=== PATIENT | male | born 1955 | race Caucasian/White ===

== ENCOUNTER 2018-05-25 09:31 | Day surgery (SDC) | payer OTHER ==
[~2018-05-25] VITALS: Ht 185.4 cm; Wt 91.7 kg
[~2018-05-25 09:31] MED LIST: BUPIVACAINE/PF-EPI 0.5% 1:200K ONE; None per pt
[2018-05-25] MEDS ORDERED: LACTATED RINGERS 1,000 ML IV SCH (09:46)
[2018-05-25 10:24] VITALS: BP 146/91
[2018-05-25] MEDS ORDERED: LIDOCAINE-MPF 2% ,5ML ONE (11:11)
[2018-05-25] MEDS ORDERED: SUCCINYLCHOLINE 20 MG/ML, 10ML ONE (11:11)
[2018-05-25] MEDS ORDERED: ONDANSETRON 2MG/ML, 2ML ONE ×5 (11:12)
[2018-05-25] MEDS ORDERED: METOCLOPRAMIDE 5 MG/ML, 2ML ONE (11:12)
[2018-05-25] MEDS ORDERED: PROPOFOL 10 MG/ML, 20ML ONE (11:12)
[2018-05-25] MEDS ORDERED: DEXAMETHASONE 4 MG/ML, 1ML ONE ×3 (11:13)
[2018-05-25] MEDS ORDERED: FENTANYL PF 100 MCG/2ML ONE ×2 (11:18→14:39)
[2018-05-25] MEDS ORDERED: MIDAZOLAM 1 MG/ML, 2ML ONE (11:18)
[2018-05-25] MEDS ORDERED: OXYcodone 5 MG/5 ML ORAL.SOL UDC ONE (14:26)
[2018-05-25] MEDS ORDERED: OXYcodone 5 MG/5 ML ORAL.SOL UDC PO PRN (14:30)
[2018-05-25] MEDS ORDERED: LABETALOL 5MG/ML, 20ML IV PRN (14:30)
[2018-05-25] MEDS ORDERED: MEPERIDINE/PF 25MG/0.5ML IVPush PRN (14:30)
[2018-05-25] MEDS ORDERED: MIDAZOLAM 1 MG/ML, 2ML IV PRN (14:30)
[2018-05-25] MEDS ORDERED: ONDANSETRON 2MG/ML, 2ML IVPush PRN (14:30)
[2018-05-25] MEDS ORDERED: HYDROmorphone 1 MG/ML, 1ML IV PRN (14:30)
[2018-05-25] MEDS: FENTANYL PF 100 MCG/2ML IV PRN ×2 (14:40→15:05)
[2018-05-25] MEDS ORDERED: PROMETHAZINE 12.5 MG SUPP PR PRN (17:30)
[2018-05-26] MEDS ORDERED: ACET325T14 PO (11:42)
[2018-05-26] MEDS ORDERED: AMOX-291 PO (11:42)
[2018-05-26] MEDS ORDERED: DOXY100T9 PO (11:42)
== END 2018-05-25 19:05 | disposition home or self-care (01) ==
LOC: OUT 09:31
PROVIDERS: ATTEND Surgery
DX: E04.1 Nontoxic single thyroid nodule (principal); Z85.828 Personal history of other malignant neoplasm of skin; Z98.890 Other specified postprocedural states; Z72.89 Other problems related to lifestyle
CPT/HCPCS: 60220; 88307; C1760; J0330; J1100; J1170; J2250; J2405; J2704; J2765; J3010; J3490

== ENCOUNTER 2018-05-25 20:24 | Observation (INO) | payer OTHER ==
[~2018-05-25] VITALS: Ht 185.4 cm; Wt 91.0 kg
[~2018-05-25 20:24] MED LIST changes: -BUPIVACAINE/PF-EPI 0.5% 1:200K ONE
[2018-05-25] MEDS ORDERED: SODIUM CHLORIDE FLUSH 10ML SYR IVF ONE (21:30)
[2018-05-25] MEDS ORDERED: SODIUM CHLORIDE 0.9% 1,000ML IVBOLUS ONE (21:30)
[2018-05-25 21:43] LABS: MEAN CORPUSCULAR HEMOGLOBIN 31.3 pg (27.5-34.5); MEAN CORPUSCULAR HGB CONC 34.1 g/dL (33.2-36.2); MEAN CORPUSCULAR VOLUME 91.7 fL (81-97); MEAN PLATELET VOLUME 8.9 fL (7.4-10.4); PLATELET COUNT 206 x10^3/uL (130-400); RED BLOOD COUNT 5.38 x10^6/uL (4.38-5.82); RED CELL DISTRIBUTION WIDTH 12.7 % (9.4-14.8)
[2018-05-25 21:50] LABS: ANION GAP 7 mmol/L (5-15); CALCIUM 8.9 mg/dL (8.5-10.1); CHLORIDE 105 mmol/L (98-107)
[2018-05-25 21:55] LABS: ALANINE AMINOTRANSFERASE 27 U/L (12-78); ALKALINE PHOSPHATASE 62 U/L (45-117); BILIRUBIN,TOTAL 0.5 mg/dL (0.2-1.0); CREATININE 1.07 mg/dL (0.7-1.3); TOTAL PROTEIN 7.4 g/dL (6.4-8.2); TROPONIN I < 0.015 ng/mL (0.000-0.045)
[2018-05-25] MEDS ORDERED: METOCLOPRAMIDE 5 MG/ML, 2ML IV ONE (22:00)
[2018-05-25] MEDS ORDERED: METOCLOPRAMIDE 5 MG/ML, 2ML ONE (22:05)
[2018-05-25 22:20] LABS: BASOPHILS # (AUTO) 0.01 x10^3/uL (0-0.1); BASOPHILS % (AUTO) 0 % (0-1); EOSINOPHILS % (AUTO) 0 % (1-7); LYMPHOCYTES # (AUTO) 0.41 x10^3/uL (1-3.4); LYMPHOCYTES % (AUTO) 3 % (22-44); MD SCAN; MONOCYTES # (AUTO) 0.24 x10^3/uL (0.2-0.8); MONOCYTES % (AUTO) 2 % (2-9); NEUTROPHILS % (AUTO) 96 % (42-75)
[2018-05-25] MEDS ORDERED: CEFTRIAXONE 1,000 MG in SODIUM CHLORIDE 0.9% 50 ML IVPB ONE (22:30)
[2018-05-25] MEDS ORDERED: AZITHROMYCIN 500 MG in SODIUM CHLORIDE 0.9% 250 ML IVPB ONE (22:30)
[2018-05-25] MEDS ORDERED: CEFTRIAXONE PMX 1GM/50ML 50 ML ONE (22:39)
[2018-05-25] MEDS ORDERED: SODIUM CHLORIDE 0.9% 1,000 ML IV SCH (23:34)
[2018-05-26] MEDS ORDERED: ACETAMINOPHEN 325 MG TABLET PO PRN
[2018-05-26] MEDS ORDERED: ONDANSETRON 2MG/ML, 2ML IVPush PRN
[2018-05-26] MEDS ORDERED: PROMETHAZINE 25 MG/ML, 1ML IM PRN
[2018-05-26] MEDS ORDERED: HYDROcodone/APAP 5/325 TABLET PO PRN
[2018-05-26] MEDS ORDERED: POLYETHYLENE GLYCOL 17 GM PACKET PO PRN
[2018-05-26 02:55] VITALS: BP 147/80
[2018-05-26] MEDS: ONDANSETRON ODT 4 MG PO PRN ×2 (07:17→12:34)
[2018-05-26 07:58] VITALS: BP 136/77
[2018-05-26 08:50] LABS: BASOPHILS # (AUTO) 0.02 x10^3/uL (0-0.1); BASOPHILS % (AUTO) 0 % (0-1); EOSINOPHILS % (AUTO) 0 % (1-7); LYMPHOCYTES # (AUTO) 1.08 x10^3/uL (1-3.4); LYMPHOCYTES % (AUTO) 9 % (22-44); MD NO; MEAN CORPUSCULAR HEMOGLOBIN 31.3 pg (27.5-34.5); MEAN CORPUSCULAR HGB CONC 34.3 g/dL (33.2-36.2); MEAN CORPUSCULAR VOLUME 91.2 fL (81-97); MEAN PLATELET VOLUME 9.2 fL (7.4-10.4); MONOCYTES # (AUTO) 0.54 x10^3/uL (0.2-0.8); MONOCYTES % (AUTO) 5 % (2-9); NEUTROPHILS # (AUTO) 10.48 x10^3/uL (1.8-6.8); NEUTROPHILS % (AUTO) 86 % (42-75); PLATELET COUNT 216 x10^3/uL (130-400); RED BLOOD COUNT 4.87 x10^6/uL (4.38-5.82); RED CELL DISTRIBUTION WIDTH 12.9 % (9.4-14.8)
[2018-05-26] MEDS ORDERED: AMOX-291 PO (11:42)
[2018-05-26] MEDS ORDERED: DOXY100T9 PO (11:42)
[2018-05-26] MEDS ORDERED: ACET325T14 PO (11:42)
[2018-05-26 12:23] VITALS: BP 150/87
[2018-05-26] MEDS ORDERED: SODIUM CHLORIDE 0.9% 1,000 ML IV SCH (23:34)
== END 2018-05-26 14:00 | disposition home or self-care (01) ==
LOC: ED 22:53 → 4NOR 22:55 → INTOOBSV 22:55 → ED 23:20 → SUATTDRO 23:34 → ED 23:47 → 4NOR 23:47
PROVIDERS: ADMIT Hospitalist; ATTEND Hospitalist
DX: E04.1 Nontoxic single thyroid nodule (principal); G47.30 Sleep apnea, unspecified; F10.10 Alcohol abuse, uncomplicated
CPT/HCPCS: 36415; 71045; 80053; 83880; 84484; 85025; 87040; 93005; 96361; 96365; 96367; 96375; 99285; G0378; J0456; J0696; J2765; J7030; J7050; Q0162

== ENCOUNTER → 2018-06-09 | Outpatient (CLI) | payer OTHER ==
[~2018-06-09] MED LIST changes: +ACET325T14 PO; +AMOX-291 PO; +DOXY100T9 PO; +IBUP200C8 PO
== END | disposition home or self-care (01) ==
LOC: STAR 15:11
PROVIDERS: ATTEND Surgery
DX: Z02.9 Encounter for administrative examinations, unspecified (principal)

== ENCOUNTER 2018-06-22 09:20 | Inpatient (IN) | payer OTHER ==
[~2018-06-22] VITALS: Ht 185.4 cm; Wt 95.7 kg
[~2018-06-22 09:20] MED LIST changes: +BUPIVACAINE/PF-EPI 0.5% 1:200K ONE
[2018-06-22] MEDS ORDERED: DEXAMETHASONE 4 MG/ML, 1ML ONE ×2 (09:45)
[2018-06-22] MEDS ORDERED: FENTANYL PF 100 MCG/2ML ONE ×2 (09:45→13:34)
[2018-06-22] MEDS ORDERED: PROPOFOL 10 MG/ML, 20ML ONE ×2 (09:45→12:43)
[2018-06-22] MEDS ORDERED: MIDAZOLAM 1 MG/ML, 2ML ONE (09:45)
[2018-06-22] MEDS ORDERED: CEFAZOLIN 1,000 MG ONE ×2 (09:46)
[2018-06-22] MEDS ORDERED: SUCCINYLCHOLINE 20 MG/ML, 10ML ONE (09:46)
[2018-06-22] MEDS ORDERED: LACTATED RINGERS 1,000 ML IV SCH (09:52)
[2018-06-22] MEDS ORDERED: ACET-1600 PO (09:53)
[2018-06-22] MEDS ORDERED: ONDANSETRON 2MG/ML, 2ML ONE ×2 (11:17→12:05)
[2018-06-22] MEDS ORDERED: ROCURONIUM 10MG/ML,5ML ONE (11:17)
[2018-06-22] MEDS ORDERED: EPHEDRINE 50 MG/ML, 1ML ONE (11:17)
[2018-06-22] MEDS ORDERED: SCOPOLAMINE PATCH, 1.5MG PATCH.TD72 TD ONE (11:22)
[2018-06-22] MEDS ORDERED: MEPERIDINE/PF 25MG/0.5ML IVPush PRN (12:00)
[2018-06-22] MEDS ORDERED: LABETALOL 5MG/ML, 20ML IV PRN (12:00)
[2018-06-22] MEDS ORDERED: DIPHENHYDRAMINE 50 MG/ML, 1ML IVPush PRN (12:00)
[2018-06-22] MEDS ORDERED: METOPROLOL 1 MG/ML, 5ML IV PRN (12:00)
[2018-06-22] MEDS ORDERED: DIAZEPAM 5 MG/ML, 2ML IVPush PRN (12:00)
[2018-06-22] MEDS ORDERED: PROCHLORPERAZINE 5 MG/ML, 2ML IV PRN (12:00)
[2018-06-22] MEDS ORDERED: HALOPERIDOL 5 MG/ML IV PRN (12:00)
[2018-06-22] MEDS ORDERED: ACETAMINOPHEN 325 MG TABLET PO PRN ×2 (12:00→14:30)
[2018-06-22] MEDS ORDERED: EPHEDRINE 50 MG/ML, 1ML IVPush PRN (12:00)
[2018-06-22] MEDS ORDERED: ALBUTEROL SULFATE 2.5 MG/3 ML NPPB PRN (12:00)
[2018-06-22] MEDS ORDERED: MORPHINE SULFATE 4 MG/ML, 1ML IVPush PRN (12:00)
[2018-06-22] MEDS ORDERED: hydrALAzine 20 MG/ML, 1ML IV PRN ×2 (12:00→14:30)
[2018-06-22] MEDS ORDERED: OXYcodone 5 MG/5 ML ORAL.SOL UDC PO PRN (12:00)
[2018-06-22] MEDS ORDERED: MIDAZOLAM 1 MG/ML, 2ML IV PRN (12:00)
[2018-06-22] MEDS ORDERED: LORazepam 2 MG/ML, 1ML IVPush PRN (12:00)
[2018-06-22] MEDS ORDERED: METOCLOPRAMIDE 5 MG/ML, 2ML ONE (12:05)
[2018-06-22] MEDS ORDERED: HYDROmorphone 2 MG/ML, 1ML ONE (13:14)
[2018-06-22] MEDS: HYDROmorphone 1 MG/ML, 1ML IV PRN ×3 (13:17→13:44)
[2018-06-22] MEDS ORDERED: OXYcodone 5 MG/5 ML ORAL.SOL UDC ONE (13:34)
[2018-06-22] MEDS: FENTANYL PF 100 MCG/2ML IV PRN ×2 (13:37→13:44)
[2018-06-22] MEDS ORDERED: HYDROcodone/APAP 5/325 TABLET PO PRN (14:30)
[2018-06-22] MEDS ORDERED: ONDANSETRON 2MG/ML, 2ML IV PRN (14:30)
[2018-06-22] MEDS ORDERED: ACETAMINOPHEN 650 MG SUPP PR PRN (14:30)
[2018-06-22] MEDS: CALCIUM/VITAMIN D3 250-125 TABLET PO SCH ×2 (17:05→20:58)
[2018-06-22 19:55] VITALS: BP 135/79
[2018-06-22] MEDS: SODIUM CHLORIDE FLUSH 10ML SYR IVF SCH (20:58)
[2018-06-23 00:24] VITALS: BP 125/71
[2018-06-23 04:31] VITALS: BP 125/75
[2018-06-23] MEDS ORDERED: LEVOTHYROXINE 150 MCG TABLET PO SCH (06:00)
[2018-06-23 09:09] VITALS: BP 143/73
[2018-06-23] MEDS: CALCIUM/VITAMIN D3 250-125 TABLET PO SCH (09:40)
[2018-06-23] MEDS: SODIUM CHLORIDE FLUSH 10ML SYR IVF SCH (09:40)
[2018-06-23] MEDS ORDERED: LEVO150T PO ×2 (11:02→12:59)
[2018-06-23] MEDS ORDERED: HYDR-3240 PO (13:00)
== END 2018-06-23 13:35 | disposition home or self-care (01) | DRG 627 ==
LOC: OUT 09:20 → 4NOR 14:07 → OUT 14:29 → DCLOUNGE 06-23 12:54
PROVIDERS: ADMIT Surgery; ATTEND Surgery
PROC: 0GTH0ZZ Resection of Right Thyroid Gland Lobe, Open Approach (ICD-10-PCS; principal; 2018-06-22 11:30)
DX: C73 Malignant neoplasm of thyroid gland (principal); E89.0 Postprocedural hypothyroidism; Z85.828 Personal history of other malignant neoplasm of skin; Z82.3 Family history of stroke; Z82.49 Family history of ischemic heart disease and other diseases of the circulatory system; Z80.9 Family history of malignant neoplasm, unspecified; G47.33 Obstructive sleep apnea (adult) (pediatric); Z99.81 Dependence on supplemental oxygen
CPT/HCPCS: 36415; 82310; 83970; 88307; G0378; J0690; J1100; J1170; J2250; J2405; J2704; J3010; C1760; J0330; J2765; J7120

== ENCOUNTER → 2018-08-21 | Outpatient (CLI) | payer OTHER ==
[~2018-08-21] MED LIST changes: +ACET-1600 PO; -BUPIVACAINE/PF-EPI 0.5% 1:200K ONE; +HYDR-3240 PO; +LEVO150T PO
== END | disposition home or self-care (01) ==
LOC: LAB 09:10
PROVIDERS: ATTEND Internal Medicine Endocrinology, Diabetes & Metabolism
DX: C73 Malignant neoplasm of thyroid gland (principal)
CPT/HCPCS: 36415; 84432; 86800